=== PATIENT | male | born 1985 | race Caucasian/White ===

== ENCOUNTER 2016-09-13 15:44 | Emergency (ER) | payer MEDICAID ==
[2016-09-13] MEDS ORDERED: Sodium Chloride 0.9% 1,000 ML IV ONE (15:54)
[2016-09-13 16:11] VITALS: BP 157/77
--- NOTE | 2016-09-13 21:18 | ER ---
HISTORY OF PRESENT ILLNESS: A 31-year-old male here with complaints of not feeling well. He tells me that he drank a lot of alcohol last night. He was given a ride home with his significant other who is here with him today. The patient tells me that he does not feel good today, and it is not getting better. He has been trying to drink water at home. He has not eaten much of anything today. He feels weak, tired, and at times a little shaky. The patient is concerned about severe dehydration. He tells me that he otherwise is healthy. He is not on any prescription medications. The patient tells me that he felt fine yesterday before consuming the alcohol. OBJECTIVE: GENERAL APPEARANCE: The patient is awake and alert. No obvious respiratory distress. VITAL SIGNS: Reviewed. Blood pressure 157/77, he is afebrile, pulse is 84 HEENT: Oral mucous membranes are moist. Tonsils not enlarged or injected. Pharynx not inflamed. NECK: Supple. LUNGS: Clear. No CVA tenderness is noted with percussion. CARDIAC: Heart sounds are distinct without murmurs. ABDOMEN: Soft and nontender. SKIN: Warm and dry. LAB AND X-RAY: CBC is unremarkable. CMP is also normal. Kidney function is good. Blood glucose is 85. ETOH is 1.0. DIAGNOSIS: Alcohol abuse with weakness and mild dehydration. TREATMENT PLAN: The patient was given 1 L of normal saline per IV. He also ate one-half of a sandwich and tolerated it okay. The patient states he is starting to feel better at this point and will be discharged to go home, rest, continue to increase his water intake and increase activity tomorrow as tolerated. Followup is prosendo ANAND/WILY /[id number]
== END 2016-09-13 17:41 | disposition home or self-care (01) ==
LOC: LB.ED 15:44
DX: E86.0 Dehydration (principal); F10.10 Alcohol abuse, uncomplicated; R53.83 Other fatigue
CPT/HCPCS: 36415; 80053; 85025; 96360; 99284; G0480; J7040